=== PATIENT | female | born 1985 | race Caucasian/White ===

== ENCOUNTER 2016-12-17 21:50 | Emergency (ER) | payer MEDICAID, OTHER ==
[~2016-12-17] VITALS: Ht 154.9 cm; Wt 49.9 kg
[2016-12-17] MEDS ORDERED: LORazepam Inj 2mg/ml 1ml IM ONE (22:00)
[2016-12-17] MEDS ORDERED: Haloperidol 5mg/ml Inj ONE (22:17)
[2016-12-17] MEDS ORDERED: Haloperidol 5mg/ml Inj IM ONE (22:30)
[2016-12-17 22:50] VITALS: BP 110/74
[2016-12-17 23:55] VITALS: BP 105/70
[2016-12-18 01:05] VITALS: BP 120/84
--- NOTE | 2016-12-18 02:05 | Emergency Room Report ---
History of Present Illness General Chief Complaint: General Complaint Source: Patient, Medical Record, EMS Present Illness HPI Is a 31-year-old female who is homeless. She presents with chief complaint altered mental status. She is using methamphetamine for 2 days. She was running around screaming. She was naked. She was claiming that there are bugs crawling all over her. She had to be restrained by he messed with police escort here to the ER. Denies any suicidal thought or homicidal thought. No other complaint. Allergies: Coded Allergies: NO KNOWN ALLERGIES (Unverified Allergy, Unknown, 12/06/13) Patient History Past Medical History: see triage record, old chart reviewed Past Surgical History: unable to obtain Family History: none Social History: tobacco use, drug use Last Menstrual Period: unknow Now: No Immunizations: other Reviewed Nursing Documentation: PMH: Agreed, PSxH: Agreed Nursing Documentation-PMH History Of Psychiatric Problem: Yes - Psych Review of Systems ENT: Denies: sore throat Cardiovascular: Denies: chest pain, palpitations Gastrointestinal/Abdominal: Denies: diarrhea, nausea, vomiting Musculoskeletal: Denies: back problems Skin: Denies: rash Neurological: Denies: BARROW, seizures All Other Systems: negative except mentioned in HPI Physical Exam Vital Signs Date Time Temp Pulse Resp B/P Pulse Ox O2 Delivery O2 Flow Rate FiO2 12/17/16 21:45 97.9 74 18 110/74 98 Room Air vitals normal Sp02 EP Interpretation: reviewed, normal General Appearance: no apparent distress, non-toxic, other - Agitated Head: normocephalic, atraumatic Eyes: PERRL, EOMI ENT: oropharynx normal Neck: supple/symm/no masses Respiratory: effort normal, no rhonchi, no wheezing Cardiovascular: no murmur, gallop, rub Gastrointestinal: non-tender, no mass, non-distended, no rebound/guarding, normal bowel sounds Musculoskeletal: strength & tone normal Neurologic: oriented x3, sensory intact, motor strength/tone normal Psychiatric: anxious, other - Patient is very agitated. HEENT screaming that there are things crawling On her and biting her. Skin: no rash, normal palpation Medical Decision Making Diagnostic Impression: Primary Impression: Psychosis Qualified Codes: F23 - Brief psychotic disorder Additional Impression: Methamphetamine abuse ER Course Patient presents with acute psychosis secondary to drug abuse. She has to be sedated because she's screaming and try remove clothing and bed sheets. She slept in the night without a problem. Initially restraint removed after sedation. She felt better now. No suicidal thought homicidal thought. This patient is a chronic risk of self injury due to poor impulse control, limited coping skills, and judgment intermittently impaired by intoxication. I believe that the available clinical evidence to suggest that these characteristics derived primarily from personality disorder and are likely very stable over time. Hospitalization would likely attenuate risk of self-harm only during detention period, without lasting risk reduction. Serious self-harm , while possible, would likely be inadvertent, and because of impulsivity, and foreseeable. For these reasons, I do not believe hospitalization would provide meaningful reduction in risk of self-harm. Last Vital Signs Date Time Temp Pulse Resp B/P Pulse Ox O2 Delivery O2 Flow Rate FiO2 12/17/16 22:50 97.9 66 18 110/74 98 Room Air Status: improved Disposition: HOME, SELF-CARE Condition: Stable Referrals: NON PHYSICIAN (PCP) Additional Instructions: Abstain from drug and alcohol. Follow up with rehabilitation in 2-3 days. Return if worse. LORE LOPES M.D. Dec 18, 2016 02:05
[2016-12-18 02:45] VITALS: BP 102/66
[2016-12-18 04:40] VITALS: BP 108/73
[2016-12-18 06:30] VITALS: BP 112/78
[2016-12-18 06:36] VITALS: BP 112/78
== END 2016-12-18 06:36 | disposition home or self-care (01) ==
LOC: EDBD 21:50 → EMR 22:53
DX: F23 Brief psychotic disorder (principal); F15.10 Other stimulant abuse, uncomplicated; Z78.1 Physical restraint status
CPT/HCPCS: 96372; 99283; J1630